=== PATIENT | male | born 1980 | race African-American/Black ===

== ENCOUNTER 2022-03-02 12:28 | Emergency (ER) | payer SELFPAY ==
[~2022-03-02] VITALS: Ht 162.6 cm; Wt 118.2 kg
[2022-03-02 12:49] VITALS: BP 155/79
--- NOTE | 2022-03-02 13:13 | PHYS DOC ---
Past History Past Surgical History: No Surgical History Alcohol Use: Occasionally General Adult EDM: Chief Complaint: FINGER INJURY HPI: HPI: Patient is a 41-year-old male who presents to the emergency department today for a left second and third finger laceration. Patient reports that he cut his fingers on a pole saw approximately 12:00 today. He states that his last teta nus shot was in 2016. He denies any decreased range of motion, blood thinner use or decrease sensation to his fingers. Review of Systems: Review of Systems: Musculoskeletal: See HPI Integument: See HPI Neurologic: See HPI Physical Exam: PE: Constitutional: Well developed, well nourished, no acute distress, non-toxic appearance. [] HENT: Normocephalic, atraumatic, bilateral external ears normal, oropharynx moist, no oral exudates, nose normal. [] Eyes: PERRL, EOMI, conjunctiva normal, no discharge. [] Neck: Normal range of motion, no stridor Cardiovascular: Normal peripheral perfusion Lungs & Thorax: Normal work of breathing, no tachypnea Abdomen: Soft and flat Skin: Warm, dry, no erythema, no rash. [] Back: No tenderness, normal range of motion Extremities: No tenderness, no cyanosis, no clubbing, ROM intact, no edema. [] Left fingers: 1 cm laceration noted to left second finger with subcutaneous involvement, range of motion intact, neuro intact, no visible foreign bodies or tendon involvement. 3.5 cm laceration noted to the palmar aspect of the left third finger with subcutaneous involvement, range of motion intact, neuro intact, no visible foreign bodies or tendon involvement. Neurologic: Alert and oriented X 3, normal motor function, normal sensory function, no focal deficits noted. [] Psychologic: Affect normal, judgement normal, mood normal. [] Current Patient Data: Vital Signs: Vital Signs Date Time Temp Pulse Resp B/P (MAP) Pulse Ox O2 Delivery O2 Flow Rate FiO2 03/02/22 12:49 97.7 77 16 155/79 (104) 99 Room Air EKG: EKG: [] Radiology/Procedures: Radiology/Procedures: [] Heart Score: C/O Chest Pain: N/A Risk Factors: Risk Factors: DM, Current or recent (<one month) smoker, HTN, HLP, family history of CAD, obesity. Risk Scores: Score 0 - 3: 2.5% MACE over next 6 weeks - Discharge Home Score 4 - 6: 20.3% MACE over next 6 weeks - Admit for Clinical Observation Score 7 - 10: 72.7% MACE over next 6 weeks - Early Invasive Strategies Course & Med Decision Making: Course & Med Decision Making Pertinent Labs and Imaging studies reviewed. (See chart for details) [] Patient resents to the emergency department for a laceration to his left second and third finger. Laceration was cleansed in the emergency department and irrigated. Laceration repair with sutures was performed. Patient tolerated procedure. Range of motion and neuro is intact. Dressing was placed. Patient educated on laceration care and suture removal. His tetanus was updated today. I discussed with patient all findings and diagnostic testing as well as the need to follow-up with PCP for further evaluation and treatment or return to the ER if any new or worsening symptoms. Strict return precautions were also discussed at length. Patient voiced understanding and agreement with the plan. Patient is hemodynamically stable at the time of disposition. Tyler Disclaimer: Tyler Disclaimer: This electronic medical record was generated, in whole or in part, using a voice recognition dictation system. Laceration Repair Lac Repair Time: 1350 Confirmed: Patient, procedure, site, and site correct Consent: Patient has given verbal consent Laceration location: linear l. 3rd finger Shape: linear Depth: subcut involvement Details: Clean with no foreign material Neurovascular, tendon exam: Intact Anesthesia: 1% lidocaine Preparation: Sterile field established Irrigation: Wound irrigated with sterile saline Skin closure: Simple interrupted sutures placed Size of suture:6-0 ethilon Number of sutures:8 Complexity: Single layer Post procedure exam: Circulation, motor, sensory exam intact, bleeding controlled. Complications: None Patient tolerated: Well Performed by: self Total time: 25 min superficial laceration noted to l. 2nd finger-dermabond Departure Departure: Impression: Primary Impression: Laceration Disposition: HOME / SELF CARE / HOMELESS Condition: GOOD Patient Instructions: Laceration Care, Adult Additional Instructions: You are seen in the emergency department today for a laceration to your finger which was repaired with sutures and skin glue. Please keep the area of the sutures clean and dry and wash with mild soap and warm water. Do not submerge your hand in any water for 2 to 3 days. You can apply Polysporin or ointment on ly to the suture site, do not apply Polysporin or bacitracin ointment to the area of the skin glue as it will erode to the skin glue. Keep the dressing in place. Monitor for any signs of infection such as redness, warmth, swelling or drainage. You take Tylenol and ibuprofen for any pain at home. You will need to follow-up with your primary care provider or return to the emergency department to have your sutures removed in 7-10 days. Return to the emergency department if you develop any signs of infection, increased swelling, decreased range of motion or decreased sensation in your finger. [employer] March 02, 2022 13:13
[2022-03-02] MEDS ORDERED: LIDOCAINE 1% Multi-Dose 20 ML VIAL. IJ ONE (13:15)
[2022-03-02] MEDS ORDERED: DIPHTH,PERTUSS(ACELL),TET TOX 0.5 ML DISP.SYRIN. VAX IM ONE (13:15)
[2022-03-02] MEDS ORDERED: NEOMY/BACITR/POLYMYXIN OINT PACKET. TP ONE (14:15)
== END 2022-03-02 14:51 | disposition home or self-care (01) ==
LOC: ER 12:28
DX: S61.211A Laceration without foreign body of left index finger without damage to nail, initial encounter (principal); S61.213A Laceration without foreign body of left middle finger without damage to nail, initial encounter; W27.8XXA Contact with other nonpowered hand tool, initial encounter; Y93.89 Activity, other specified; Y92.89 Other specified places as the place of occurrence of the external cause; Y99.8 Other external cause status
CPT/HCPCS: 12002; 90471; 90715; 99283; 99284